=== PATIENT | female | born 1945 | race Caucasian/White ===

== ENCOUNTER → 2016-06-12 | Outpatient (CLI) | payer OTHER ==
[~2016-06-12] MED LIST: ALG PO; AMX500 PO; ATOR10TA88 PO; BUPR200T2 PO; CHOL20009 PO; CYAN500T13 PO; CYCL0.052 OPB; CYM/30 PO; INSDGI SC; LEVO137T3 PO; LITH1TAB PO; LOSA50TA6 PO; POLYSOL OPB; PRED10TA PO; SPIR50TA3 PO
[2016-06-12 15:00] LABS: ESTIMATED AVERAGE GLUCOSE 237 mg/dl; HA1C FLAG Normal (Normal)
[2016-06-12 15:23] LABS: BLOOD UREA NITROGEN 21 mg/dl (7-18); BUN/CREATININE RATIO 26.4 (10-20); CALCIUM 9.6 mg/dl (8.5-10.1); CARBON DIOXIDE 26 mmol/L (21-32); CHLORIDE 105 mmol/L (98-107); CREATININE 0.79 mg/dl (0.60-1.20); GLUCOSE 149 mg/dl (70-99); POTASSIUM 4.3 mmol/L (3.5-5.1); SODIUM 138 mmol/L (136-145)
[2016-06-12 15:26] LABS: CHOLESTEROL 137 mg/dl (0-200); CHOLESTEROL/HDL RATIO 3.7; HDL CHOLESTEROL 37 mg/dl; LDL CHOLESTEROL CALCULATED 58 mg/dl; TRIGLYCERIDES 211 mg/dl (0-150); VERY LOW DENSITY LIPOPROT CALC 42 mg/dl
[2016-06-12 15:27] LABS: RATIO 13.2 mcg/mg (0-30.0)
[2016-06-12 15:29] LABS: THYROID STIMULATING HORMONE 0.165 uIu/ml (0.300-4.500)
== END | disposition home or self-care (01) ==
LOC: C.LAB 13:23
PROVIDERS: ATTEND Internal Medicine Endocrinology, Diabetes & Metabolism
DX: I10 Essential (primary) hypertension (principal); E11.9 Type 2 diabetes mellitus without complications; E78.5 Hyperlipidemia, unspecified; R53.83 Other fatigue; E55.9 Vitamin D deficiency, unspecified

== ENCOUNTER → 2016-06-29 | Outpatient (CLI) | payer OTHER | END | disposition home or self-care (01) | LOC: C.LABPVFM 14:45 | PROVIDERS: ATTEND Nurse Practitioner | DX: R39.9 Unspecified symptoms and signs involving the genitourinary system (principal) ==

== ENCOUNTER → 2016-10-20 | Outpatient (CLI) | payer OTHER ==
[~2016-10-20] MED LIST changes: +ATOR10TA82 PO; -ATOR10TA88 PO
[2016-10-21 06:19] LABS: ESTIMATED AVERAGE GLUCOSE 237 mg/dl; HA1C FLAG Normal (Normal)
== END | disposition home or self-care (01) ==
LOC: C.LABPVFM 14:32
PROVIDERS: ATTEND Neuromusculoskeletal Medicine & OMM
DX: E03.9 Hypothyroidism, unspecified (principal); E55.9 Vitamin D deficiency, unspecified; E11.9 Type 2 diabetes mellitus without complications; Z00.00 Encounter for general adult medical examination without abnormal findings

== ENCOUNTER → 2017-02-26 | Outpatient (CLI) | payer OTHER ==
[~2017-02-26] MED LIST changes: -ATOR10TA82 PO; +ATOR10TA88 PO
[2017-02-26 14:59] LABS: THYROID STIMULATING HORMONE 5.79 uIu/ml (0.300-4.500)
[2017-02-27 05:53] LABS: ESTIMATED AVERAGE GLUCOSE 258 mg/dl; HA1C FLAG Normal (Normal)
== END | disposition home or self-care (01) ==
LOC: C.LAB 13:11
PROVIDERS: ATTEND Internal Medicine Endocrinology, Diabetes & Metabolism
DX: E78.5 Hyperlipidemia, unspecified (principal); E03.9 Hypothyroidism, unspecified; E11.9 Type 2 diabetes mellitus without complications; E55.9 Vitamin D deficiency, unspecified

== ENCOUNTER → 2017-03-24 | Outpatient (CLI) | payer OTHER ==
[2017-03-24 13:46] LABS: URINE APPEARANCE CLEAR (CLEAR); URINE BILIRUBIN NEG (NEG); URINE COLOR YELLOW; URINE EPITHELIAL CELL AUTO >30 /lpf (0-5); URINE NITRITE NEG (NEG); URINE SPECIFIC GRAVITY 1.026 (1.000-1.030); UROBILINOGEN NEG (NEG)
[2017-03-24 13:53] LABS: MANUAL MICROSCOPIC REQUIRED? NO; REVIEW REQ? NO
== END | disposition home or self-care (01) ==
LOC: C.LABPVFM 13:07
PROVIDERS: ATTEND Nurse Practitioner Family
DX: R82.99 Other abnormal findings in urine (principal)

== ENCOUNTER → 2017-03-26 | Outpatient (CLI) | payer OTHER ==
[~2017-03-26] MED LIST changes: +ATOR10TA82 PO; -ATOR10TA88 PO
--- NOTE | 2017-03-26 13:23 | DIAGNOSTIC IMAGING REPORT ---
ULTRASOUND ABDOMINAL WALL CLINICAL HISTORY: Abdominal wall bulge. COMPARISON STUDY: No priors. FINDINGS: Real-time grayscale sonography of the ventral abdominal wall is performed at the indicated site of interest in the supraumbilical midline. There is a small fat-containing ventral hernia at this site. This was only partially reducible during the examination. The hernia orifice measures up to 8 mm. There is no bowel or fluid within the hernia sac. IMPRESSION: There is a small and partially reducible fat-containing supraumbilical hernia at the site of interest. Electronically signed by: Josh Bowens M.D. 03/26/2017 1:22 PM Dictated Date/Time: 03/26/2017 1:21 PM
== END | disposition home or self-care (01) ==
LOC: C.ULTR 12:52
PROVIDERS: ATTEND Nurse Practitioner Family
DX: R19.00 Intra-abdominal and pelvic swelling, mass and lump, unspecified site (principal)

== ENCOUNTER → 2017-09-15 | Outpatient (CLI) | payer OTHER ==
[~2017-09-15] MED LIST changes: -PRED10TA PO; -SPIR50TA3 PO
[2017-09-15 18:27] LABS: BLOOD UREA NITROGEN 14 mg/dl (7-18); CALCIUM 9.2 mg/dl (8.5-10.1); CARBON DIOXIDE 26 mmol/L (21-32); CREATININE 1.12 mg/dl (0.60-1.20); SODIUM 133 mmol/L (136-145)
[2017-09-15 18:54] LABS: GLUCOSE 459 mg/dl (70-99)
== END | disposition home or self-care (01) ==
LOC: C.LABPVFM 15:20
PROVIDERS: ATTEND Student in an Organized Health Care Education/Training Program
DX: Z79.899 Other long term (current) drug therapy (principal)

== ENCOUNTER → 2018-01-08 | Outpatient (CLI) | payer OTHER, BC ==
[~2018-01-08] MED LIST changes: +DULO60CA44 PO; +GLC/500 PO; -INSDGI SC; +INSU100I23 SC; +LEVO125T72 PO; -LEVO137T3 PO; -LITH1TAB PO; +LITH1TAB10 PO; +NVLGIPEN SC
== END | disposition home or self-care (01) ==
LOC: C.LABSPEC 12:29
PROVIDERS: ATTEND Internal Medicine
DX: N39.0 Urinary tract infection, site not specified (principal)

== ENCOUNTER → 2018-01-08 | Outpatient (CLI) | payer OTHER, BC ==
--- NOTE | 2018-01-08 12:45 | DIAGNOSTIC IMAGING REPORT ---
TWO VIEW CHEST CLINICAL HISTORY: Cough and fever. FINDINGS: PA and lateral chest radiographs are obtained. No prior studies are available for comparison at the time of dictation. The heart is top normal for projection. There is atherosclerotic calcification of the thoracic and. The mediastinal contour is within normal limits mild nonspecific interstitial thickening is likely chronic. There is a question a 2.0 cm density in the left upper lobe. There is no airspace consolidation or pleural effusion. There is no pneumothorax. The bony thorax appears intact. Cholecystectomy clips are seen in the right upper quadrant. IMPRESSION: 1. There is no airspace consolidation or pleural effusion. 2. There is a questionable 2.0 cm nodular density in the left upper lobe. This may simply represent superimposition of shadows; however, a follow-up chest CT is recommended to exclude underlying pulmonary lesion. Electronically signed by: Josh Bowens M.D. 01/08/2018 12:44 PM Dictated Date/Time: 01/08/2018 12:39 PM
== END | disposition home or self-care (01) ==
LOC: C.RAD1850 12:04
PROVIDERS: ATTEND Internal Medicine
DX: R50.9 Fever, unspecified (principal); R05 Cough; R09.89 Other specified symptoms and signs involving the circulatory and respiratory systems; R91.8 Other nonspecific abnormal finding of lung field

== ENCOUNTER → 2018-01-18 | Outpatient (CLI) | payer OTHER, BC ==
--- NOTE | 2018-01-18 14:27 | DIAGNOSTIC IMAGING REPORT ---
(CHEST) THORAX WITHOUT CLINICAL HISTORY: 72 years-old Female presenting with R91.1 Pulmonary nodule. TECHNIQUE: Multidetector CT imaging of the chest was performed without the use of intravenous contrast. IV contrast: None. A dose lowering technique was used consistent with the principles of ALARA (as low as reasonably achievable). COMPARISON: Chest x-ray from 01/08/2018. CT DOSE (mGy.cm): The estimated cumulative dose is 617.89 mGy.cm. FINDINGS: Photo[employer] topogram: Unremarkable. On soft tissue windows, normal thyroid and thoracic inlet. No axillary, supraclavicular, hilar, or mediastinal lymphadenopathy. Normal aorta. Normal heart size. No pericardial or pleural effusion. Borderline hepatic steatosis. 1.8 cm left adrenal nodule consistent with a benign adenoma by density. 1.2 cm right adrenal nodule also consistent with benign adenoma by density. Cholecystectomy clips. On lung windows, no focal infiltrate or nodule. Airways patent. No pneumothorax. On bone windows, normal osseous structures. IMPRESSION: 1. No pulmonary nodule. No acute intrathoracic pathology. 2. Bilateral benign adrenal adenomas. 3. Borderline hepatic steatosis. Electronically signed by: Deniz Flaherty M.D. 01/18/2018 2:26 PM Dictated Date/Time: 01/18/2018 2:21 PM
== END | disposition home or self-care (01) ==
LOC: C.CTS 14:07
PROVIDERS: ATTEND Neuromusculoskeletal Medicine & OMM
DX: R91.1 Solitary pulmonary nodule (principal); D35.00 Benign neoplasm of unspecified adrenal gland; K76.0 Fatty (change of) liver, not elsewhere classified